=== PATIENT | female | born 1985 | race African-American/Black ===

== ENCOUNTER 2017-08-08 05:54 | Day surgery (SDC) | payer OTHER ==
[2017-08-08] MEDS ORDERED: FENTAnyl 50 MCG/ML VIAL (07:11)
[2017-08-08] MEDS ORDERED: PROPOFOL 20 ML (07:13)
[2017-08-08] MEDS ORDERED: LIDOCAINE 2% (SDV) 5 ML INJ (07:13)
[2017-08-08] MEDS ORDERED: CEFAZOLIN 1 GM INJ (07:14)
[2017-08-08] MEDS ORDERED: ONDANSETRON 4 MG INJ (07:17)
[2017-08-08] MEDS ORDERED: DEXAMETHASONE 4 MG/ML 1 ML INJ ×2 (07:18→07:37)
[2017-08-08] MEDS ORDERED: KETOROLAC 30 MG INJ (07:19)
[2017-08-08] MEDS ORDERED: LIDOCAINE 1% (MPF) 30 ML INJ (07:37)
[2017-08-08] MEDS ORDERED: KETOROLAC 30 MG INJ IV (08:00)
[2017-08-08] MEDS ORDERED: HYDROmorphONE (0.2 MG/ML) 10ML SYG IV ×2 (08:00)
[2017-08-08] MEDS ORDERED: ONDANSETRON 4 MG INJ IV (08:00)
[2017-08-08] MEDS: POVIDONE IODINE 10% 28.4 GM OINT (09:06)
[2017-08-08] MEDS: BUPIVACAINE 0.5% (SDV) 30 ML INJ (09:14)
[2017-08-08] MEDS: FENTAnyl 50 MCG/ML VIAL IV (09:45)
== END 2017-08-08 11:45 | disposition home or self-care (01) ==
LOC: SDS 05:54
DX: M20.11 Hallux valgus (acquired), right foot (principal); E66.9 Obesity, unspecified; Z68.41 Body mass index [BMI] 40.0-44.9, adult
CPT/HCPCS: 28299; 88304; 88311